=== PATIENT | female | born 1990 | race Caucasian/White ===

== ENCOUNTER 2018-05-18 05:42 | Outpatient (CLI) | payer OTHER ==
[~2018-05-18] VITALS: Ht 154.9 cm; Wt 62.1 kg
[2018-05-18] MEDS ORDERED: BUPR300T43 PO (13:59)
[2018-05-18] MEDS ORDERED: LURA40TA3 PO (13:59)
== END 2018-05-18 14:03 | disposition home or self-care (01) ==
LOC: PREOP 05:42
PROVIDERS: ATTEND Otolaryngology Otolaryngology/Facial Plastic Surgery
DX: Z01.818 Encounter for other preprocedural examination (principal)

== ENCOUNTER 2018-06-01 06:50 | Day surgery (SDC) | payer BC, OTHER ==
[~2018-06-01] VITALS: Ht 154.9 cm; Wt 61.2 kg
[~2018-06-01 06:50] MED LIST: BUPR300T43 PO; LURA40TA3 PO
[2018-06-01] MEDS ORDERED: LACTATED RINGERS 1,000 ML IV PRN (06:51)
[2018-06-01 07:00] VITALS: BP 114/86
--- NOTE | 2018-06-01 07:04 | Progress Note-Pre Operative ---
Pre-Operative Progress Note H&P Reviewed The H&P was reviewed, patient examined and no changes noted. 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
[2018-06-01] MEDS ORDERED: SCOPOLAMINE 1.5 MG (TRANSDERM-SCOP) PATCH TOP ONE (07:15)
[2018-06-01] MEDS ORDERED: FAMOTIDINE 20MG/2ML IV (PEPCID) IV ONE (07:15)
[2018-06-01] MEDS ORDERED: ONDANSETRON 4 MG/2 ML (SDV) Z0FRAN IV ONE (07:15)
[2018-06-01] MEDS ORDERED: MIDAZOLAM 2 MG/2 ML (VERSED) VIAL ONE (07:24)
[2018-06-01] MEDS ORDERED: fentaNYL INJECTION 100 MCG/2 ML AMP ONE (07:24)
[2018-06-01] MEDS ORDERED: FAMOTIDINE 20MG/2ML IV (PEPCID) ONE (07:27)
[2018-06-01] MEDS ORDERED: ONDANSETRON 4 MG/2 ML (SDV) Z0FRAN ONE ×2 (07:27→07:34)
[2018-06-01] MEDS ORDERED: SCOPOLAMINE 1.5 MG (TRANSDERM-SCOP) PATCH ONE (07:27)
[2018-06-01] MEDS ORDERED: proPOfol 200 MG/20 ML (DIPRIVAN) VIAL IV ONE ×2 (07:34→07:49)
[2018-06-01] MEDS ORDERED: LIDOCAINE PF 2% 5 ML (XYLOCAINE) VIAL ONE (07:34)
[2018-06-01] MEDS ORDERED: ROCURONIUM 10 MG/ML 5 ML SYRINGE IV ONE (07:34)
[2018-06-01] MEDS ORDERED: DEXAMETHASONE 10 MG/ML (DECADRON) 1 ML VIAL ONE (07:34)
[2018-06-01] MEDS ORDERED: SEVOFLURANE (ULTANE) 15 ML INHAL SOLN ONE (07:34)
[2018-06-01 07:37] LABS: BASOPHILS % (AUTO) 1 % (0-10); EOSINOPHILS # (AUTO) 0.2 10^3/uL (0.0-0.3); EOSINOPHILS % (AUTO) 3 % (0-10); HEMATOCRIT 40 % (35-52); HEMOGLOBIN 13.3 G/DL (11.5-16.0); LYMPHOCYTES # (AUTO) 1.8 X 10^3 (1.0-4.0); LYMPHOCYTES % (AUTO) 34 % (12-44); MEAN CORPUSCULAR HEMOGLOBIN 28 PG (25-34); MEAN CORPUSCULAR HGB CONC 34 G/DL (32-36); MEAN CORPUSCULAR VOLUME 83 FL (80-99); MEAN PLATELET VOLUME 9.7 FL (7.4-10.4); MONOCYTES # (AUTO) 0.4 X 10^3 (0.0-1.0); MONOCYTES % (AUTO) 8 % (0-12); NEUTROPHILS # (AUTO) 2.9 X 10^3 (1.8-7.8); NEUTROPHILS % (AUTO) 55 % (42-75); PLATELET COUNT 259 10^3/uL (130-400); RED CELL DISTRIBUTION WIDTH 13.1 % (10.0-14.5); WHITE BLOOD COUNT 5.3 10^3/uL (4.3-11.0)
[2018-06-01 07:49] LABS: BUN/CREATININE RATIO 11; CALCIUM 9.7 MG/DL (8.5-10.1); CARBON DIOXIDE 23 MMOL/L (21-32); CHLORIDE 104 MMOL/L (98-107); CREATININE SERUM 0.82 MG/DL (0.60-1.30); GFR ESTIMATED > 60; GLUCOSE 90 MG/DL (70-105); POTASSIUM 3.9 MMOL/L (3.6-5.0); SODIUM 139 MMOL/L (135-145)
[2018-06-01] MEDS ORDERED: morphine INJ 10 MG/ML 1ML (SYR OR VIAL) ONE (07:50)
[2018-06-01] MEDS ORDERED: NS IV 1000 ML 1,000 ML IV SCH (08:09)
--- NOTE | 2018-06-01 08:09 | Progress Note-Post Operative ---
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 Specimen(s) collected/removed tonsils/uvula ANGELA MIRELES MD Jun 01, 2018 08:09
[2018-06-01] MEDS ORDERED: APAP 325 MG/10.15 ML LIQ (TYLENOL) UDC PO PRN (08:15)
[2018-06-01] MEDS ORDERED: HYDROcodone/APAP 7.5MG-325 MG/15 ML (LORTAB) UDC PO PRN (08:15)
[2018-06-01] MEDS ORDERED: morphine INJ 10 MG/ML 1ML (SYR OR VIAL) IVP ONE (08:30)
[2018-06-01] MEDS ORDERED: PROMETHAZINE INJ 25 MG/ML (PHENERGAN) AMP IVP ONE (08:30)
[2018-06-01] MEDS ORDERED: HYDROmorphone 2 MG/ML VIAL (DILAUDID) IV ONE (08:30)
[2018-06-01] MEDS ORDERED: MEPERIDINE (DEMEROL) INJ 50 MG/ML IVP ONE (08:30)
[2018-06-01] MEDS ORDERED: ONDANSETRON 4 MG/2 ML (SDV) Z0FRAN IVP PRN (08:30)
[2018-06-01 09:05] VITALS: BP 124/89
[2018-06-01 09:10] VITALS: BP 124/89
[2018-06-01] MEDS ORDERED: TETRACAINESUCKERS MT (09:13)
[2018-06-01] MEDS ORDERED: DEXAINTSOL PO (09:13)
[2018-06-01] MEDS ORDERED: AMOX250S5 PO (09:13)
[2018-06-01] MEDS ORDERED: HYDR15SO8 PO (09:13)
[2018-06-01 09:35] VITALS: BP 119/86
[2018-06-01] MEDS ORDERED: HYDROcodone/APAP 7.5MG-325 MG/15 ML (LORTAB) UDC ONE (09:39)
[2018-06-01 10:05] VITALS: BP 117/78
--- NOTE | 2018-06-01 10:21 | Anesthesia-General Post-Op ---
General Patient Condition Mental Status/LOC: Same as Preop Cardiovascular: Satisfactory Nausea/Vomiting: Absent Respiratory: Satisfactory Pain: Controlled Complications: Absent Post Op Complications Complications None Follow Up Care/Instructions Patient Instructions None needed. Anesthesia/Patient Condition Patient Condition Patient is doing well, no complaints, stable vital signs, no apparent adverse anesthesia problems. ADDIE BOONE DO Jun 01, 2018 10:21
== END 2018-06-01 11:00 | disposition home or self-care (01) ==
LOC: SDC 06:50
PROVIDERS: ATTEND Otolaryngology Otolaryngology/Facial Plastic Surgery
DX: J35.01 Chronic tonsillitis (principal); J35.3 Hypertrophy of tonsils with hypertrophy of adenoids; J98.8 Other specified respiratory disorders; Q38.6 Other congenital malformations of mouth; F45.8 Other somatoform disorders; Z11.2 Encounter for screening for other bacterial diseases; F41.9 Anxiety disorder, unspecified; F32.9 Major depressive disorder, single episode, unspecified; K21.9 Gastro-esophageal reflux disease without esophagitis; M54.9 Dorsalgia, unspecified; J45.909 Unspecified asthma, uncomplicated; Z87.891 Personal history of nicotine dependence; Z79.899 Other long term (current) drug therapy
CPT/HCPCS: 36415; 80048; 84703; 85025; 87081

== ENCOUNTER 2022-11-02 09:57 | Emergency (ER) | payer BC ==
[~2022-11-02] VITALS: Ht 154.5 cm; Wt 71.5 kg
[~2022-11-02 09:57] MED LIST changes: +AMOX250S5 PO; +DEXAINTSOL PO; +HYDR15SO8 PO; +LURA40TA2 PO; -LURA40TA3 PO; +TETRACAINESUCKERS MT
[2022-11-02 10:07] VITALS: BP 140/45
--- NOTE | 2022-11-02 10:51 | ED Headache ---
General Chief Complaint: Head/Cervical Problems Stated Complaint: HEAD INJURY FROM CAR DOOR ACCIDENT Nursing Triage Note: Patient states last Tuesday she pulled her trunk door onto her head. Patient states her boss took her to a Urgent Care where she had 2 mari placed to top of head. Patient states she has been having headaches and visual changes since hitting her head. Patient c/o nausea, but denies any vomiting. 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 Patient states she has had interm. confusion. Patient denies any ringing in ears or neck pain. Source: patient Exam Limitations: no limitations (ANNITA MARK) History of Present Illness Date Seen by Provider: Nov 02, 2022 Time Seen by Provider: 10:39 Initial Comments 32 yo F with PMH prior concussion, post concussive migraines, HTN, and anxiety presents to the ED with c/o REDDING and confusion that started after a head injury on 10/27/22. Pt states that last week she required multiple mari to her head after striking her head on her car trunk. Following the head strike, pt states that she has experienced a constant REDDING around the wound. Pt states pain is a constant dull ache and rates it a 7/10. States exacerbation of pain with light, sound, and looking at screens. Pt has been alternating taking tylenol and ibuprofen with no relief. Notes associated decreased appetite, nausea, confusion/difficulty with word finding, trouble sleeping secondary to pain, and dizziness with standing. Pt also notes intermittent blurred vision that occurs daily, often when driving, and lasts approximately an hour. Pt has h/o prior concussion ~10years ago that caused migraines. States that current symptoms are similar to when she had a concussion in the past. Denies vomiting, fever, chills, discharge from wound, sensory/motor deficits, gait issues, and prior im aging done at time of injury. Timing/Duration: 1 week Severity/Quality: achy, constant Location: frontal (around wound) Prior Headaches/Recent Trauma: head trauma > 24 hrs ago (1 week ago) Modifying Factors: improves with exposure to light Associated Symptoms: confusion; No fever/chills; nausea/vomiting (nausea, no vomiting); No numbness in legs/feet; vision changes (intermittent blurred vision) (ANNITA MARK) Allergies and Home Medications Allergies Coded Allergies: cephalexin (Verified Allergy, Severe, HIVES/FACE SWELLING, 05/18/18) Patient Home Medication List Home Medication List Reviewed: Yes (ANNITA MARK) Amoxicillin (Amoxicillin) 250 Mg/5 Ml Susp, 2 TSP PO BID Prescribed by: DANIEL AUSTIN on 06/01/18912 Bupropion HCl (Wellbutrin Xl) 300 Mg Tab.er.24h, 300 MG PO DAILY, (Reported) Entered as Reported by: CRICKET ANDUJAR on 05/18/18 1359 Butalb/Acetaminophen/Caffeine (Vkmrbr-Ypxxecjl-Ocao 50-325-40) 50 Mg-325 Mg-40 Mg Tablet, 1 EACH PO Q8H PRN for headache Prescribed by: LE REED on 11/02/22 1127 Dexamethasone (Decadron Intensol Oral Solution (Repackaging)) 1 Mg/1 Ml Nadine, 2 TSP PO DAILY Prescribed by: DANIEL AUSTIN on 06/01/18912 Hydrocodone/Acetaminophen (Hydrocodon-Acetamin 7.5-325/15 ML) 15 Ml Solution, 2- 2.5 TSP PO Q4H PRN for PAIN-MODERATE Prescribed by: DANIEL AUSTIN on 06/01/18912 Lurasidone HCl (Latuda) 40 Mg Tablet, 40 MG PO DAILY, (Reported) Entered as Reported by: CRICKET ANDUJAR on 05/18/18 1359 Ondansetron (Ondansetron Odt) 4 Mg Tab.rapdis, 4 MG SL Q8H PRN for NAUSEA/VOMITING Prescribed by: LE REED on 11/02/22 1126 Tetracaine (Tetracaine Suckers) Raader Ea, 1 EA MT UD PRN for PAIN Prescribed by: DANIEL AUSTIN on 06/01/18912 Review of Systems Review of Systems Constitutional: No chills; dizziness (with standing); No fever Eyes: Blurred Vision (intermittent), Photophobia, Previous Injury (struck head ~1 week ago) Ears, Nose, Mouth, Throat: no symptoms reported Respiratory: no symptoms reported Cardiovascular: no symptoms reported Gastrointestinal: no symptoms reported Genitourinary: no symptoms reported Musculoskeletal: no symptoms reported Skin: no symptoms reported Psychiatric/Neurological: No Symptoms Reported (ANNITA MARK) All Other Systems Reviewed Negative Unless Noted: Yes (ANNITA MARK) Past Wuuoscx-Timird-Iwuphg Hx Patient Social History Tobacco Use?: No Use of E-Cig and/or Vaping dev: Yes E-Cig or Vaping type used: Nicotine Use of E-Cig and/or Vaping Jl: Current Someday User Substance use?: No Alcohol Use?: Yes Alcohol Frequency: Couple times a week (ANNITA MARK) Immunizations Up To Date Tetanus Booster (TDap): Unknown PED Vaccines UTD: No Influenza Vaccine Up-to-Date: No; Not Current (ANNITA MARK) Seasonal Allergies Seasonal Allergies: No (ANNITA MARK) Past Medical History Surgeries: Yes (WISDOM TEETH, CS X2) Adenoidectomy, Gallbladder, Tonsillectomy Respiratory: No (CHILDHOOD ASTHMA) Cardiac: Yes High Cholesterol, Hypertension Neurological: Yes Concussion (10 years ago), Headaches /Migraines (secondary to prior concussion) Reproductive Disorders: No Sexually Transmitted Disease: No HIV/AIDS: No Genitourinary: No Gastrointestinal: Yes Gastroesophageal Reflux, Gall Bladder Disease Musculoskeletal: Yes Chronic Back Pain, Fractures Endocrine: Yes (Vit D deficiency) Diabetes, Non-Insulin dep HEENT: Yes (GLASSES/CONTACTS) Tonsilitis Loss of Vision: Denies Cancer: No Psychosocial: Yes ADD/ADHD, Anxiety, Depression Integumentary: No Blood Disorders: No Adverse Reaction/Blood Tranf: No (N/A) (ANNITA MARK) Family Medical History No Pertinent Family Hx (ANNITA MARK) Physical Exam Vital Signs Vital Signs - First Documented 11/02/22 10:07 Temp 36.9 Pulse 80 Resp 14 B/P (MAP) 140/45 (76) O2 Delivery Room Air (LE REED MD) Vital Signs Capillary Refill : (ANNITA MARK) Height, Weight, BMI Height: 5'1.00" Weight: 135lbs. 0.0oz. [id number]; 29.00 BMI Method: General Appearance: WD/WN, no apparent distress HEENT: PERRL/EOMI, pharynx normal Neck: full range of motion, supple Cardiovascular: regular rate, rhythm, no murmur Respiratory: lungs clear, normal breath sounds, no respiratory distress, no accessory muscle use Psychiatric: alert, oriented x 3 Crainal Nerves: normal hearing, normal speech, PERRL Coordination/Gait: normal gait Motor/Sensory: no motor deficit, no sensory deficit Skin: normal color, warm/dry, other (mari present overlying frontal region of head, no erythema or discharge noted. tenderness to palpation around wound ) (ANNITA MARK) Progress/Results/Core Measures Results/Orders Vital Signs/I&O 11/02/22 10:07 Temp 36.9 Pulse 80 Resp 14 B/P (MAP) 140/45 (76) O2 Delivery Room Air (LE REED MD) Blood Pressure Mean: 76 Progress Progress Note : Time: 11:15 Progress Note Patient seen and evaluated by me. I have reviewed and agree with the medical student's documentation. Evaluation today involves physical exam. Pertinent PE findings - WDWN female, No acute distress. Stable VS and normal neuro exam. She has 2 mari at the top of her head that appear well healed. DDx - post concussive syndrome. Patient's 2 mari were removed. She had no concerning neuro complaints or findings on exam other than concussive symptoms. She was given prescriptions for nausea meds (zofran) and 6 tablets of fioricet for her headaches. We went over in-depth concussion precautions. She was given a work note for 2 days. Return precautions provided in both verbal and written format. All questions were sought and answered. (LE REED MD) Departure Impression Primary Impression: Post concussion syndrome Additional Impression: Removal of mari Disposition: 01 HOME, SELF-CARE Condition: Stable Departure-Patient Inst. Decision time for Depature: 11:18 (LE REED MD) Referrals: LEIGH KEITA MD (PCP/Family) Primary Care Physician Patient Instructions: Post-Concussion Syndrome ED Add. Discharge Instructions: Drink plenty of fluids to stay well-hydrated. Use the Fioricet 1 tablet with 1 extra strength Tylenol at night before bed as needed for headache. Do not drive and take this medication. It can make you sleepy. Avoid excessive "brain stimulation" for the next 24 hours. Limited smart phone use, limited TV, limited reading. Slowly re-introduce these activities after 24 hours. If symptoms recur, then another 24 hours of "brain rest" is needed. Ondansetron/Zofran 4 mg tablets every 8 hours as needed for nausea. Follow-up with your primary care doctor as needed, return to the emergency department for any new, concerning or worsening complaints Scripts Butalb/Acetaminophen/Caffeine (Zfslun-Krppwgct-Wdej 50-325-40) 50 Mg-325 Mg-40 Mg Tablet 1 EACH PO Q8H PRN for headache, #6 TAB Prov: LE REED MD 11/02/22 Ondansetron (Ondansetron Odt) 4 Mg Tab.rapdis 4 MG SL Q8H PRN for NAUSEA/VOMITING, #12 TAB Prov: LE REED MD 11/02/22 Work/School Note: Work Release Form Date Seen in the Emergency Department: Nov 02, 2022 Return to Work: Nov 04, 2022 Verification and Attestation of Medical Student E/M Service A medical student performed and documented this service in my presence. I reviewed and verified all information documented by the medical student and made modifications to such information, when appropriate. I personally performed the physical exam and medical decision making. Le Reed, Nov 02, 2022,11:19 (LE REED MD) ANNITA MARK Nov 02, 2022 10:51 LE REED MD Nov 02, 2022 11:23
[2022-11-02] MEDS ORDERED: BUTA-235 PO (11:26)
[2022-11-02] MEDS ORDERED: ONDA4TAB11 SL (11:26)
== END 2022-11-02 11:50 | disposition home or self-care (01) ==
LOC: EDUNIT# 09:57 → ER 10:01
DX: F07.81 Postconcussional syndrome (principal); F17.290 Nicotine dependence, other tobacco product, uncomplicated; Z48.02 Encounter for removal of sutures; Z28.310 Unvaccinated for COVID-19
CPT/HCPCS: 99281